=== PATIENT | male | born 1980 | race Caucasian/White ===

== ENCOUNTER 2024-07-18 10:03 | Emergency (ER) | payer SELFPAY ==
[~2024-07-18] VITALS: Ht 177.8 cm; Wt 84.1 kg
[2024-07-18 10:11] VITALS: TEMP 99.1
[2024-07-18 10:32] VITALS: BP 150/102
[2024-07-18] MEDS ORDERED: LIQUIFILM TEARS15 ML OD (10:49)
[2024-07-18 11:20] VITALS: PULSE 102
== END 2024-07-18 11:20 | disposition home or self-care (01) ==
LOC: COL.ER 10:03
DX: H11.001 Unspecified pterygium of right eye (principal)